=== PATIENT | male | born 1985 | race Caucasian/White ===

== ENCOUNTER 2018-08-07 15:30 | Emergency (ER) | payer SELFPAY ==
[~2018-08-07] VITALS: Ht 266.7 cm; Wt 70.3 kg
[2018-08-07 15:39] VITALS: BP 132/63
[2018-08-07] MEDS ORDERED: oxyCODONE/APAP (5/325 MG) 1 UDTAB TABLET ONE (15:55)
[2018-08-07] MEDS ORDERED: ONDANSETRON 4 MG TAB.RAPDIS ONE (15:56)
[2018-08-07] MEDS ORDERED: PSEUDOEPHEDRINE HCL 30 MG TABLET PO ONE (16:00)
[2018-08-07] MEDS ORDERED: ONDANSETRON 4 MG TAB.RAPDIS SL ONE (16:00)
[2018-08-07] MEDS ORDERED: PSEUDOEPHEDRINE HCL 30 MG TABLET ONE (16:00)
[2018-08-07] MEDS ORDERED: oxyCODONE/APAP (5/325 MG) 1 UDTAB TABLET PO ONE (16:00)
== END 2018-08-07 16:21 | disposition home or self-care (01) ==
LOC: ER 15:35
DX: H66.91 Otitis media, unspecified, right ear (principal); H60.91 Unspecified otitis externa, right ear; F17.200 Nicotine dependence, unspecified, uncomplicated
CPT/HCPCS: 99284; A4606; Q0162; Z7610